=== PATIENT | male | born 1970 | race Caucasian/White ===

== ENCOUNTER 2024-08-31 15:55 | Outpatient (CLI) | payer BC, SELFPAY ==
--- NOTE | ~2024-08-31 | XR_ITS ---
AP and lateral views of the right hip Clinical history: Pain Findings: No acute fracture or dislocation is seen. Osseous alignment is anatomic. There is moderate degenerative change of the right hip joint. Soft tissues are unremarkable. 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 Reviewed, dictated and finalized at [facility]. 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
== END 2024-08-31 15:56 | disposition home or self-care (01) ==
LOC: MICIMG 15:59
PROVIDERS: PCP Family Medicine; Visit Provider Family Medicine
DX: M16.11 Unilateral primary osteoarthritis, right hip (principal)
CPT/HCPCS: 73502

== ENCOUNTER 2024-09-12 12:36 | Emergency (ER) | payer BC, SELFPAY ==
[2024-09-12 12:45] VITALS: BP 122/78; PULSE 103; RESP 16; TEMP 36.8; O2SAT 97
[2024-09-12] MEDS: TETANUS,DIPHTHERIA,AC PERTUSSIS ADULT (0.5 ML) BOOSTRIX IM (12:59)
--- NOTE | 2024-09-12 14:09 | ED_ITS ---
HPI - Animal Bite General Chief Complaint: Animal Bite Stated Complaint: Dog Bite Time Seen by Provider: 09/12/24 13:02 Source: patient and RN notes reviewed Mode of arrival: ambulatory Limitations: no limitations History of Present Illness HPI narrative: Patient presents today complaining of a dog bite to the posterior left calf that was sustained 1 hour prior to arrival by his neighbor's dog. 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 The dog charged him and bit him in the leg. The neighbor told the patient that the dog is up-to-date on the vaccines. Patient is not up-to-date on his tetanus vaccine. Related Data Allergies Allergy/AdvReac Type Severity Reaction Status Date / Time No Known Allergies Allergy Verified 09/12/24 13:03 [facility] Social History Social History Smoking packs per day: 1 Smoking cigarettes per day: 20.0 Years smoked: 21 Smoking pack-years: 21.00 Smoking status: Current every day smoker Comments At time of signature, I have reviewed and agree with nursing past medical, surgical, social and family history unless otherwise noted. Please see nursing chart for further information. There is no relevant family history pertinent to the presenting complaint Exam Narrative: GENERAL: Well-appearing, well-nourished, and in no acute distress. HEAD: Normocephalic, atraumatic. EYES: EOMI. No redness or drainage. Conjunctivae normal. ENT: Mucous membranes pink and moist. NECK: Normal AROM. CHEST: No respiratory distress. EXTREMITIES: Left lower leg: Posterior calf has 5 fairly superficial skin tears, each measuring approximately 5 by 3 mm, arranged in the shape of a dog's mouth. Minimal active bleeding. He also has a tiny very superficial scratch to the left posterior elbow measuring approximately 4 x 1 mm. No surrounding swelling or ecchymosis noted to either location. Distal sensation intact. Capillary refill normal. Full range of motion to the knee and ankle. SKIN: Warm, dry, no rash. Capillary refill normal. Normal skin turgor. NEURO: No focal deficits. Alert and oriented x3. Gait steady. PSYCH: Normal affect. No signs of depression or anxiety. Course Course Level of Care: Express Care Visit Vital Signs Vital signs: Vital Signs Temperature 98.3 F 09/12/24 12:45 Pulse Rate 103 H 09/12/24 12:45 Respiratory Rate 16 09/12/24 12:45 Blood Pressure 122/78 09/12/24 12:45 Pulse Oximetry 97 09/12/24 12:45 Temperature 98.3 F 09/12/24 12:45 Pulse Rate 103 H 09/12/24 12:45 Respiratory Rate 16 09/12/24 12:45 Blood Pressure 122/78 09/12/24 12:45 Pulse Oximetry 97 09/12/24 12:45 Reviewed Procedures Other Procedure Procedure 1: Other Procedure: Left calf wound was pressure irrigated with 700 ml of normal saline and dressed with large bandaid. Right elbow scratch was cleansed with saline and wound cleanser and dressed with bandaid. MDM - Animal Bite MDM Narrative Medical decision making narrative: 54-year-old male patient presents today after being bit by his neighbor's dog in the left calf with a tiny abrasion to the left elbow. His left calf wound was pressure irrigated with saline and dressed. His tetanus shot was updated. He was placed on Augmentin to prevent infection. No closure was attempted as these wounds were fairly superficial skin tears. He will monitor for infection at home and follow-up necessary. Vital signs stable. Anticipatory guidance given. Differential Diagnosis Differential diagnosis: Likely bite by animal Critical Care Time Critical Care Time Critical Care Time: No Discharge Plan Discharge Clinical Impression: Dog bite Qualifiers: Encounter type: initial encounter Qualified Code(s): W54.0XXA - Bitten by dog, initial encounter Patient Disposition: Home Condition: Stable Instructions: Antibiotic Form, Animal Bite (ED) Additional Instructions: Please wash your leg daily with soap and water and keep covered until scabbed over. Take the Augmentin as prescribed until gone. Monitor for any signs of infection such as redness, swelling, increased pain, or drainage comments your doctor if you note any. Take Tylenol or ibuprofen if needed for pain. Follow- up with your PCP with any concerns. Your tetanus shot has been updated today. Your blood pressure was elevated above 120/80 today at Urgent Care. This puts you above the threshold for follow up. Please schedule a followup visit with your personal physician as soon as possible, for further evaluation and treatment. Even blood pressure exceeding 120/80 may indicate pre-hypertension. Patient Language: Maori Prescriptions: New amoxicillin-pot clavulanate 875-125 mg tablet 1 tablet PO Q12H 5 Days Qty: 10 0RF No Action rosuvastatin 10 mg tablet See Rx Instructions .ROUTE .COMPLEX Qty: 90 3RF Dose Instruction: TAKE 1 TABLET BY MOUTH DAILY Rx Instructions: TAKE 1 TABLET BY MOUTH DAILY tamsulosin 0.4 mg capsule 0.4 mg PO DAILY Qty: 90 3RF Follow-up/Referrals: Pritesh Goldstein MD [Primary Care Provider] - Time of Disposition: 13:18
== END 2024-09-12 13:23 | disposition home or self-care (01) ==
PROVIDERS: Emergency Provider Nurse Practitioner; PCP Family Medicine
DX: S81.812A Laceration without foreign body, left lower leg, initial encounter (principal); S50.312A Abrasion of left elbow, initial encounter; W54.0XXA Bitten by dog, initial encounter; Z23 Encounter for immunization; F17.210 Nicotine dependence, cigarettes, uncomplicated
CPT/HCPCS: 90471; 90715; 99213; G0463